=== PATIENT | female | born 1965 | race Caucasian/White ===

== ENCOUNTER 2021-11-21 07:46 | Emergency (ER) | payer BC ==
[2021-11-21] MEDS ORDERED: Ondansetron 4 MG/2 ML SDV IVPUSH ONE (08:03)
[2021-11-21] MEDS ORDERED: Aspirin 81 MG Tab.Chew PO ONE (08:04)
[2021-11-21] MEDS: Sodium Chloride 0.9% 10 ML Syringe FLUSH PRN ×2 (08:30→09:11)
[2021-11-21] MEDS ORDERED: Nitroglycerin 0.4 MG Tab.SL SL ONE (08:30)
[2021-11-21 08:54] LABS: ESTIMATED GFR 59 mL/min (>60)
[2021-11-21] MEDS ORDERED: Prochlorperazine 10 MG/2 ML SDV IVPUSH ONE (09:05)
[2021-11-21 09:52] VITALS: BP 117/81; PULSE 68
== END 2021-11-21 09:45 | disposition home or self-care (01) ==
LOC: FB.ED 07:46
DX: R07.89 Other chest pain (principal); I10 Essential (primary) hypertension; Z88.0 Allergy status to penicillin; Z91.048 Other nonmedicinal substance allergy status
CPT/HCPCS: 36415; 71045; 80053; 84484; 85025; 85379; 85610; 85730; 93005; 96374; 96375; 99285-25; A9270-GY; J0780; J2405; J3490

== ENCOUNTER 2023-08-18 08:14 | Day surgery (SDC) | payer BC ==
[2023-08-18] MEDS ORDERED: fentaNYL 100 MCG/2 ML SDV IV ONE (08:15)
[2023-08-18] MEDS ORDERED: Midazolam 1 MG/ML 2 ML SDV IV ONE (08:15)
[2023-08-18] MEDS ORDERED: Sodium Chloride 0.9% 10 ML Syringe FLUSH PRN (08:30)
[2023-08-18] MEDS: Lactated Ringers 1,000 ML IV PRN (09:45)
[2023-08-18] MEDS: acetaZOLAMIDE 500 MG Cap.ER PO ONE (11:28)
[2023-08-18 11:44] VITALS: BP 131/60; PULSE 66
== END 2023-08-18 11:41 | disposition home or self-care (01) ==
LOC: FB.SDS 08:14
PROVIDERS: ATTEND Ophthalmology
DX: H26.9 Unspecified cataract (principal); H52.202 Unspecified astigmatism, left eye; J45.909 Unspecified asthma, uncomplicated
CPT/HCPCS: A9270-GY; J2250; J3010; J7120